=== PATIENT | female | born 1965 | race Two or more races ===

== ENCOUNTER → 2017-01-01 | Outpatient (CLI) | payer OTHER ==
--- NOTE | 2017-01-01 14:30 | REP ---
MR NECK WITHOUT AND WITH CONTRAST: HISTORY: Thyroid sarcoma. CONTRAST: ProHance 27 mL. The naso-, hawa-, and hypopharynx, larynx and subglottic trachea are normal in appearance. The salivary glands are normal. The thyroid gland is small in size. Small lymph nodes less than 1 cm in size are present in the internal jugular chains, posterior triangles, and submandibular areas. Minimal degenerative change is present in the cervical spine. The lung apices are clear. The visualized sinuses are clear. IMPRESSION: There is no neck mass or adenopathy. Signed by Toni Moe MD 01/01/2017 02:31 P
== END ==
LOC: M RAD 12:37
PROVIDERS: ATTEND Otolaryngology
DX: R22.1 Localized swelling, mass and lump, neck (principal); Z85.850 Personal history of malignant neoplasm of thyroid

== ENCOUNTER → 2017-03-22 | Outpatient (CLI) | payer BC, OTHER ==
--- NOTE | 2017-03-23 07:33 | REP ---
Clinical: Palpable mass. Technique: Real time man scale and color Doppler evaluation using linear high frequency transducer. Findings: The patient is noted to be status post thyroidectomy. Directed ultrasound examination along the left posterior triangle of the neck demonstrates a complex hypoechoic collection/nodule with calcifications and mild vascularity measuring 2.1 x 1.0 x 0.6 cm. Impression: Hypoechoic complex lesion in the left posterior triangle at the site of palpable mass is otherwise nonspecific by ultrasound. Consider contrast enhanced CT or MRI for further investigation. Signed by Rashel Eddy MD 03/23/2017 07:25 A
== END ==
LOC: M RAD 14:43
PROVIDERS: ATTEND Otolaryngology
DX: R22.1 Localized swelling, mass and lump, neck (principal)

== ENCOUNTER 2018-10-02 08:55 | Day surgery (SDC) | payer BC, OTHER ==
[~2018-10-02] VITALS: Ht 170.2 cm; Wt 112.9 kg
[~2018-10-02 08:55] MED LIST: LEVO175T2 PO; LIDOCAINE 2% W/EPIN INJ 20ML **PRES FREE As Ordered ONE; LIDOCAINE 3.5 % 1ML OPHTH TOPICAL GEL OU ONE; MAXITROL OPHTH OINT 3.5 GM As Ordered ONE; POVIDONE-IODINE 5% OPHTH PREP SOL 30ML As Ordered ONE
[2018-10-02] MEDS ORDERED: fentaNYL 100 MCG/2 ML INJECTION (J3010) As Ordered ONE (09:16)
[2018-10-02] MEDS ORDERED: MIDAZOLAM INJ 2 MG/2 ML VIAL (J2250) As Ordered ONE (09:16)
[2018-10-02] MEDS ORDERED: PROPOFOL 200 MG/20 ML VIAL As Ordered ONE (09:16)
[2018-10-02] MEDS ORDERED: LIDOCAINE 2% INJ 100 MG/5 ML SDV (FOR ANES.) As Ordered ONE (09:16)
[2018-10-02] MEDS ORDERED: ONDANSETRON 4MG/2ML VIAL (J2405) IV PRN (10:45)
[2018-10-02] MEDS ORDERED: LR 1,000 ML IV SCH (10:45)
[2018-10-02] MEDS ORDERED: PERCOCET 5MG/325MG TAB PO PRN (10:45)
[2018-10-02 11:00] VITALS: BP 148/82
--- NOTE | 2018-10-09 18:39 | RO ---
DATE OF PROCEDURE: 10/02/2018 PREOPERATIVE DIAGNOSIS: Lid lesion left lower lid consistent with chalazion. POSTOPERATIVE DIAGNOSIS: Lid lesion left lower lid consistent with chalazion. PROCEDURE: Excision of lid lesion 7.7 mm left lower lid. INDICATION: Discomfort and growth of the lesion. SURGEON: Augie Menendez DO FOOD PREPARATION KITCHEN AIDE: None. ANESTHESIA: 2% Lidocaine with epinephrine. SPECIMENS: Sent to pathology. ESTIMATED BLOOD LOSS: Minimal. COMPLICATION: None. PROCEDURE IN DETAIL: After obtaining informed consent the patient was taken to the operating room and a time out was performed confirming the correct patient and operative site. The lower lid was injected with 2% lidocaine with epinephrine and the lesion was excised in toto and sent to pathology. The patient tolerated the procedure well and returned the recovery room in excellent condition. She will followup in the office.
== END 2018-10-02 11:09 | disposition home or self-care (01) ==
LOC: M SDC 08:55
PROVIDERS: ATTEND Ophthalmology
DX: L82.0 Inflamed seborrheic keratosis (principal); E03.9 Hypothyroidism, unspecified; L30.9 Dermatitis, unspecified; E66.9 Obesity, unspecified; Z68.38 Body mass index [BMI] 38.0-38.9, adult; Z79.899 Other long term (current) drug therapy; Z90.710 Acquired absence of both cervix and uterus; Z72.0 Tobacco use
CPT/HCPCS: 67840; 88305; J2250; J3010